=== PATIENT | male | born 1950 | race Caucasian/White ===

== ENCOUNTER 2020-08-05 14:20 | Emergency (ER) | payer MEDICARE, OTHER ==
[~2020-08-05] VITALS: Ht 175.3 cm; Wt 73.6 kg
[2020-08-05] MEDS ORDERED: LACTATED RINGERS 1,000 ML IV ONE ×3 (14:24→20:10)
[2020-08-05] MEDS ORDERED: ZIPRASIDONE 20 MG INJ (GEODON) VIAL IM ONE (14:26)
[2020-08-05] MEDS ORDERED: WATER (STERILE) FOR INJECTION 10 ML ONE (14:27)
[2020-08-05] MEDS ORDERED: ZIPRASIDONE INJECTION 20 MG in WATER (STERILE) FOR INJECTION 1.2 ML IM PRN (14:30)
[2020-08-05] MEDS ORDERED: LORazepam INJ 2 MG/ML (ATIVAN) VIAL ONE (14:36)
[2020-08-05 15:01] LABS: BASOPHILS % (AUTO) 0 % (0-10); EOSINOPHILS # (AUTO) 0.1 10^3/uL (0.0-0.3); EOSINOPHILS % (AUTO) 1 % (0-10); HEMATOCRIT 42 % (40-54); HEMOGLOBIN 13.8 g/dL (13.3-17.7); LYMPHOCYTES # (AUTO) 1.1 10^3/uL (1.0-4.0); LYMPHOCYTES % (AUTO) 12 % (12-44); MEAN CORPUSCULAR HEMOGLOBIN 29 pg (25-34); MEAN CORPUSCULAR HGB CONC 33 g/dL (32-36); MEAN CORPUSCULAR VOLUME 88 fL (80-99); MEAN PLATELET VOLUME 9.3 fL (9.0-12.2); MONOCYTES # (AUTO) 0.5 10^3/uL (0.0-1.0); MONOCYTES % (AUTO) 5 % (0-12); NEUTROPHILS # (AUTO) 7.5 10^3/uL (1.8-7.8); NEUTROPHILS % (AUTO) 81 % (42-75); PLATELET COUNT 173 10^3/uL (130-400); WHITE BLOOD COUNT 9.3 10^3/uL (4.3-11.0)
[2020-08-05 15:02] LABS: BILIRUBIN,URINE NEGATIVE (NEGATIVE); CLARITY,URINE CLEAR; COLOR,URINE YELLOW; GLUCOSE, URINE (UA) NEGATIVE (NEGATIVE); KETONES,URINE NEGATIVE (NEGATIVE); LEUKOCYTE ESTERASE ,URINE NEGATIVE (NEGATIVE); NITRITE,URINE NEGATIVE (NEGATIVE); PROTEIN,URINE NEGATIVE (NEGATIVE)
--- NOTE | 2020-08-05 15:03 | NUR ---
RESTRAINTS CHECKED. PRESSURE POINTS CHECKED AND PT REPOSITIONED.
[2020-08-05 15:11] LABS: BACTERIA,URINE NEGATIVE /HPF; HYALINE CASTS, URINE RARE /LPF; RBC,URINE RARE /HPF; SQUAMOUS EPITHELIAL CELL,UR RARE /HPF
[2020-08-05 15:12] LABS: PROTHROMBIN TIME PATIENT 13.2 SEC (12.2-14.7)
[2020-08-05 15:16] LABS: AMPHETAMINE SCREEN, URINE POSITIVE (NEGATIVE); BARBITURATE SCREEN URINE NEGATIVE (NEGATIVE); BENZODIAZEPINES SCREEN URINE NEGATIVE (NEGATIVE); CANNABINOID SCREEN, URINE NEGATIVE (NEGATIVE); COCAINE SCREEN URINE POSITIVE (NEGATIVE); METHADONE STAT NEGATIVE (NEGATIVE); METHAMPHETAMINE SCREEN URINE S POSITIVE (NEGATIVE); OPIATE SCREEN URINE NEGATIVE (NEGATIVE); OXYCODONE STAT NEGATIVE (NEGATIVE); PROPOXYPHENE STAT NEGATIVE (NEGATIVE); TRICYCLIC ANTIDEPRESSANTS SCRE NEGATIVE (NEGATIVE)
[2020-08-05 15:18] LABS: ALBUMIN 4.3 GM/DL (3.2-4.5); CHLORIDE 104 MMOL/L (98-107); POTASSIUM 4.2 MMOL/L (3.6-5.0); SODIUM 141 MMOL/L (135-145)
--- NOTE | 2020-08-05 15:18 | NUR ---
RESTRAINTS CHECKED. PRESSURE POINTS CHECKED AND NO ABNORMALITIES NOTED.
[2020-08-05 15:20] LABS: CALCIUM 8.9 MG/DL (8.5-10.1)
[2020-08-05 15:21] LABS: GLUCOSE 140 MG/DL (70-105); TOTAL PROTEIN 7.6 GM/DL (6.4-8.2)
[2020-08-05 15:22] LABS: CARBON DIOXIDE 27 MMOL/L (21-32)
[2020-08-05 15:23] LABS: BILIRUBIN,TOTAL 0.6 MG/DL (0.1-1.0)
[2020-08-05 15:24] LABS: ALKALINE PHOSPHATASE 71 U/L (40-136)
[2020-08-05 15:25] LABS: CREATININE SERUM 1.17 MG/DL (0.60-1.30); GFR ESTIMATED > 60
[2020-08-05 15:26] LABS: BUN/CREATININE RATIO 20
[2020-08-05 15:27] LABS: ALANINE AMINOTRANSFERASE 33 U/L (0-55); MAGNESIUM 2.8 MG/DL (1.6-2.4)
[2020-08-05 15:28] LABS: CREATINE KINASE 2870 U/L (30-200)
[2020-08-05 15:30] LABS: ACETAMINOPHEN < 10 UG/ML (10-30)
--- NOTE | 2020-08-05 15:32 | NUR ---
RESTRAINTS CHECKED. PT REPOSITIONED AND PRESSURE POINTS CHECKED. NO ABNORMALITIES NOTED.
--- NOTE | 2020-08-05 15:34 | ED General ---
General Chief Complaint: Altered Mental Status Stated Complaint: AMS Nursing Triage Note: PT TO ROOM 08 VIA EMS WITH C/O AMS. PT WAS INCOHERENT IN SPEECH AND WAS ATTEMPTING TO HIT, KICK, AND BITE STAFF. AN EMPTY BOTTLE OF VIAGRA AND AN EMPTY VILE OF KETAMINE WAS BROUGHT IN WITH THE PT. PER EMS, PT WAS FOUND SCREAMING AND RUNNING DOWN THE HALLS OF A HOTEL WHILE NAKED. MULTIPLE BRUISES AND BITE CHOPRA WERE FOUND ON THE PT. PT WAS BITING HIMSELF DURING THE EVALUATION. Nursing Sepsis Screen: No Definite Risk Source of Information: EMS Exam Limitations: Other (PT APPEARS TO BE UNDER THE INFLUENCE OF SOME SUBSTANCE/S, AND IS NOT ANSWERING QUESTIONS OR FOLLOWING COMMANDS) History of Present Illness Date Seen by Provider: Aug 05, 2020 Time Seen by Provider: 14:20 Initial Comments PT ARRIVES VIA EMS FROM LOC[facility] PT WAS FOUND NAKED AND SCREAMING AND INCOHERENT IN THE HALLS OF THE HOTEL PT WAS FOUND TO HAVE A LARGE AMOUNT OF DRUGS IN THE ROOM, INCLUDING METH, AN EMPTY BOTTLE OF KETAMINE 50 MG/ML -10 ML VIAL. PT NOTED TO HAVE MULTIPLE TRACK CHOPRA ON HIS ARMS ADDITIONALLY, THERE IS AN EMPTY BOTTLE OF VIAGRA #90 FILLED ON 07/06/20 IN ANOTHER PERSON'S NAME. EMS REPORT THAT THE NAME ON THE VIAGRA BOTTLE WAS THE NAME REPORTEDLY OF THE OTHER MALE IN THE ROOM. ADDITIONALLY THERE WERE MULTIPLE DILDO'S IN THE ROOM. PT HAS A [employer] LICENSE. Allergies and Home Medications Allergies Coded Allergies: No Allergy Information Available (Unverified , 08/05/20) Review of Systems Review of Systems Constitutional: other (UNABLE TO OBTAIN) Past Ewfcjht-Xyjarm-Rawfge Hx Patient Social History 2nd Hand Smoke Exposure: No Recent Foreign Travel: No Contact w/Someone Who Travel: No Recent Infectious Disease Expo: No Physical Abuse: No Sexual Abuse: No Mistreated: No Fear: No Family Medical History ALL PMH IS UNKNOWN PT TESTED + FOR PCP, METH/AMPHETAMINES, AND COCAINE ON 08/05/20. ADDITIONALLY, HE HAD AN EMPTY BOTTLE OF KETAMINE WITH HIM WELL Physical Exam Vital Signs Vital Signs - First Documented 08/05/20 14:30 Temp 36.6 Pulse 86 Resp 23 B/P (MAP) 126/83 (97) O2 Delivery Room Air Capillary Refill : Less Than 3 Seconds Height, Weight, BMI Height: '" Weight: lbs. oz. kg; 23.00 BMI Method: General Appearance: Other (PT IS COMPLETELY NAKED, OUT OF CONTROL, THRASHING, SQUEEZING HIS PENIS AND TESTICLES, BITING HIS ARMS, GRITTING HIS TEETH, PUTTING HIS KNEES TO HIS CHEST AND SAYING "FUCK ME" REPEATEDLY. HE IS ALSO HITTING, KICKING, FIGHTING, TRYING TO BITE STAFF. ) HEENT: Other (BRUISING AND SWELLING TO BOTH UPPER LIDS. TEETH INTACT. ) Respiratory: Normal Breath Sounds, No Accessory Muscle Use, No Respiratory Distress Cardiovascular: Regular Rate, Rhythm, No Murmur Gastrointestinal: Soft Genital/Rectal: Other (BRUISING TO SCROTUM--PT WAS SQUEEZING THIS AREA VERY TIGHTLY ON ARRIVA) Back: Other (BRUISES AND ABRASIONS TO BACK) Extremity: Normal Range of Motion, No Pedal Edema, Other (MULTIPLE BRUISES TO ARMS AND LEGS, BITE CHOPRA TO HIS ARMS THAT HAVE DRAWN BLOOD) Neurologic/Psychiatric: Other (PT COMPLETELY INCOHERENT, THRASHING ALL OVER. NOT ANSWERING QUESTIONS OR FOLLOW COMMANDS. ) Skin: Other (BRUISES AND ABRASIONS TO MOST OF BODY, INCLUDING. HIS BACK . ) Progress/Results/Core Measures Suspected Sepsis Recent Fever Within 48 Hours: No Infection Criteria Present: None New/Unexplained Altered Menta: No Sepsis Screen: No Definite Risk SIRS Temperature: Pulse: 86 Respiratory Rate: 23 Laboratory Tests 08/05/20 14:45: White Blood Count 9.3 Blood Pressure 126 /83 Mean: 97 Laboratory Tests 08/05/20 14:45: Creatinine 1.17, INR Comment 1.0, Platelet Count 173, Total Bilirubin 0.6 Results/Orders Lab Results Laboratory Tests Test 08/05/20 14:45 08/05/20 15:19 Range/Units White Blood Count 9.3 4.3-11.0 10^3/uL Red Blood Count 4.72 4.30-5.52 10^6/uL Hemoglobin 13.8 13.3-17.7 g/dL Hematocrit 42 40-54 % Mean Corpuscular Volume 88 80-99 fL Mean Corpuscular Hemoglobin 29 25-34 pg Mean Corpuscular Hemoglobin Concent 33 32-36 g/dL Red Cell Distribution Width 13.6 10.0-14.5 % Platelet Count 173 130-400 10^3/uL Mean Platelet Volume 9.3 9.0-12.2 fL Immature Granulocyte % (Auto) 0 % Neutrophils (%) (Auto) 81 H 42-75 % Lymphocytes (%) (Auto) 12 12-44 % Monocytes (%) (Auto) 5 0-12 % Eosinophils (%) (Auto) 1 0-10 % Basophils (%) (Auto) 0 0-10 % Neutrophils # (Auto) 7.5 1.8-7.8 10^3/uL Lymphocytes # (Auto) 1.1 1.0-4.0 10^3/uL Monocytes # (Auto) 0.5 0.0-1.0 10^3/uL Eosinophils # (Auto) 0.1 0.0-0.3 10^3/uL Basophils # (Auto) 0.0 0.0-0.1 10^3/uL Immature Granulocyte # (Auto) 0.0 0.0-0.1 10^3/uL Prothrombin Time 13.2 12.2-14.7 SEC INR Comment 1.0 0.8-1.4 Activated Partial Thromboplast Time 27 24-35 SEC Urine Color YELLOW Urine Clarity CLEAR Urine pH 6.0 5-9 Urine Specific [place] 1.020 1.016-1.022 Urine Protein NEGATIVE NEGATIVE Urine Glucose (UA) NEGATIVE NEGATIVE Urine Ketones NEGATIVE NEGATIVE Urine Nitrite NEGATIVE NEGATIVE Urine Bilirubin NEGATIVE NEGATIVE Urine Urobilinogen 0.2 < = 1.0 MG/DL Urine Leukocyte Esterase NEGATIVE NEGATIVE Urine RBC (Auto) 2+ H NEGATIVE Urine RBC RARE /HPF Urine WBC NONE /HPF Urine Squamous Epithelial Cells RARE /HPF Urine Crystals NONE /LPF Urine Bacteria NEGATIVE /HPF Urine Casts PRESENT /LPF Urine Hyaline Casts RARE /LPF Urine Mucus SMALL H /LPF Urine Culture Indicated NO Sodium Level 141 135-145 MMOL/L Potassium Level 4.2 3.6-5.0 MMOL/L Chloride Level 104 98-107 MMOL/L Carbon Dioxide Level 27 21-32 MMOL/L Anion Gap 10 5-14 MMOL/L Blood Urea Nitrogen 23 H 7-18 MG/DL Creatinine 1.17 0.60-1.30 MG/DL Estimat Glomerular Filtration Rate > 60 BUN/Creatinine Ratio 20 Glucose Level 140 H 70-105 MG/DL Calcium Level 8.9 8.5-10.1 MG/DL Corrected Calcium 8.7 8.5-10.1 MG/DL Magnesium Level 2.8 H 1.6-2.4 MG/DL Total Bilirubin 0.6 0.1-1.0 MG/DL Aspartate Amino Transf (AST/SGOT) 65 H 5-34 U/L Alanine Aminotransferase (ALT/SGPT) 33 0-55 U/L Alkaline Phosphatase 71 40-136 U/L Total Creatine Kinase 2870 H 30-200 U/L Creatine Kinase MB 55.3 *H <6.6 NG/ML Myoglobin 3045.5 H 10.0-92.0 NG/ML Troponin I 0.038 H <0.028 NG/ML Total Protein 7.6 6.4-8.2 GM/DL Albumin 4.3 3.2-4.5 GM/DL Urine Opiates Screen NEGATIVE NEGATIVE Urine Oxycodone Screen NEGATIVE NEGATIVE Urine Methadone Screen NEGATIVE NEGATIVE Urine Propoxyphene Screen NEGATIVE NEGATIVE Acetaminophen Level < 10 L 10-30 UG/ML Urine Barbiturates Screen NEGATIVE NEGATIVE Ur Tricyclic Antidepressants Screen NEGATIVE NEGATIVE Urine Phencyclidine Screen POSITIVE H NEGATIVE Urine Amphetamines Screen POSITIVE H NEGATIVE Urine Methamphetamines Screen POSITIVE H NEGATIVE Urine Benzodiazepines Screen NEGATIVE NEGATIVE Urine Cocaine Screen POSITIVE H NEGATIVE Urine Cannabinoids Screen NEGATIVE NEGATIVE Serum Alcohol < 10 <10 MG/DL Coronavirus 2019 ([facility]) Negative Negative My Orders Orders - KRIS DE LA ROSA DO Ed Iv/Invasive Line Start (08/05/20 14:24) Ekg Tracing (08/05/20 14:24) Monitor-Rhythm Ecg Trace Only (08/05/20 14:24) Acetaminophen (08/05/20 14:24) Alcohol (08/05/20 14:24) Cbc With Automated Diff (08/05/20 14:24) Comprehensive Metabolic Panel (08/05/20 14:24) Creatine Kinase (08/05/20 14:24) Creatine Kinase Mb (08/05/20 14:24) Drug Screen Stat (Urine) (08/05/20 14:24) Magnesium (08/05/20 14:24) Protime With Inr (08/05/20 14:24) Partial Thromboplastin Time (08/05/20 14:24) Ua Culture If Indicated (08/05/20 14:24) Myoglobin Serum (08/05/20 14:24) Troponin I (08/05/20 14:24) Ed Iv/Invasive Line Start (08/05/20 14:24) Lactated Ringers (Lr 1000 Ml Iv Solution (08/05/20 14:24) Ziprasidone Injection (Geodon Injection) (08/05/20 14:30) Ziprasidone Injection (Geodon Injection) (08/05/20 14:26) Water (Sterile) For Injection (Sterile W (08/05/20 14:27) Lorazepam Injection (Ativan Injection) (08/05/20 14:36) Covid 19 Inhouse Test (08/05/20 15:02) Ct Head/Face/Cervical Wo (08/05/20 15:04) Chest 1 View, Ap/Pa Only (08/05/20 15:04) Restraints: Behavioral Q15MIN (08/05/20 15:25) Medications Given in ED Current Medications Medications Dose Ordered Sig/Debi Route Start Time Stop Time Status Last Admin Dose Admin Lactated Ringer's 1,000 ml @ 0 mls/hr Q0M ONCE IV 08/05/20 14:24 08/05/20 14:28 DC 08/05/20 15:48 999 MLS/HR Lorazepam 2 mg STK-MED ONCE .ROUTE 08/05/20 14:36 08/05/20 14:37 DC 08/05/20 15:17 2 MG Ziprasidone 20 mg/ Sterile Water 1.2 ml @ 0 mls/hr Q4H PRN IM 08/05/20 14:30 08/05/20 14:35 1.2 MLS/HR Vital Signs/I&O 08/05/20 14:30 Temp 36.6 Pulse 86 Resp 23 B/P (MAP) 126/83 (97) O2 Delivery Room Air Capillary Refill : Less Than 3 Seconds Blood Pressure Mean: 97 Progress Note : Progress Note GIVEN GEODON AND ATIVAN, AND PLACED IN 4 POINT LEATHER RESTRAINTS, PT WAS COMPLETELY OUT OF CONTROL, REQUIRING AT LEAST 6 STAFF MEMBERS TO RESTRAIN PT. PT EVENTUALLY CALMED WITH THE ABOVE MEDICATIONS LEATHER RESTRAINTS WERE LATER REPLACED WITH SOFT RESTRAINTS TO AVOID PT PULLING OUT IV OR CATHETER. VITALS STABLE O2 SATS IN UPPER 90'S TO 100% ON ROOM AIR ECG Initial ECG Impression Date: Aug 05, 2020 Initial ECG Impression Time: 14:57 Initial ECG Rate: 85 Initial ECG Rhythm: Normal Sinus Initial ECG Comparisson: No Previous ECG Available Diagnostic Imaging Comments CXR--PER RADIOLOGIST REPORT AT 1542 IMPRESSION: 1. No acute cardiopulmonary process. CT HEAD/MAXILLOFACIALS/CERVICAL SPINE--PER RADIOLOGIST REPORT AT 1606 IMPRESSION: 1. No hemorrhage or focal intra-axial mass. No CT evidence of large acute territorial ischemia. 2. No acute fracture or dislocation in the cervical spine. 3. No acute facial fractures. Reviewed: Reviewed by Me Departure Communication (Admissions) Family Conversation 1609--CALLED MOTHER'S NUMBER, MESSAGE LEFT. LEONOR MORILLO 1619--CALLED MOTHER'S NUMBER, MESSAGE LEFT 1625--MOTHER CALLED, AND I UPDATED HER ON PT'S CONDITION. SHE SUSPECTED DRUGS WERE INVOLVED 1636--PT'S , NISHA, CALLED. I ALSO UPDATED HER ON PT'S CONDITION. SHE HAS SUSPECTED DRUG USE. SHE STATES HIS BEHAVIOR HAS BEEN VERY ERRATIC, HAS BEEN WITH "QUESTIONABLE PEOPLE", BEHAVIOR HAS BEEN ESCALATING SINCE HE RETIRED IN [place] NO ICU BEDS AVAILABLE HERE 1549--CALLED [facility], NO BEDS AVAILABLE 1550--CALLED [facility], NO BEDS AVAILABLE IN [place] OR [place]. 1610--CALLED , THEY WILL DISCUSS WITH HOSPITALIST, AND WILL FAX THEM A FACE SHEET AND THEY WILL CALL BACK. 1721--CALLED [facility]. HAVE BED. WILL HAVE HOSPITALIST CALL ME BACK. Impression Primary Impression: Altered mental status Additional Impressions: ILLICIT DRUG USE Polysubstance abuse ELEVATED CK AND MYOGLOBIN MILDLY ELEVATED TROPONIN Disposition: XFER SHT-TRM HOSP Condition: Stable Transfer Transfer Reason: Diversion Transfer Facility: [facility] Method of Transfer: EMS ([facility]) KRIS DE LA ROSA DO Aug 05, 2020 15:34
--- NOTE | 2020-08-05 15:39 | Diagnostic Imaging Report ---
INDICATION: AMS COMPARISON: None FINDINGS: Single frontal view of the chest demonstrates normal heart size and pulmonary vascularity. The lungs are well aerated and clear. No large pleural effusion or pneumothorax is seen. The visualized osseous structures show no acute abnormalities. IMPRESSION: 1. No acute cardiopulmonary process. Dictated by: Dictated on workstation # [id number]
--- NOTE | 2020-08-05 15:45 | NUR ---
RESTRAINTES CHECKED. PRESSURE POINTS CHECKED AND NO ABNORMALITIES NOTED.
--- NOTE | 2020-08-05 15:56 | NUR ---
RESTRAINTS CHECKED. PRESSURE POINTS CHECK AND MASSAGED. NO ABNORMALITIES NOTED.
[2020-08-05 15:58] LABS: CREATINE KINASE MB 55.3 NG/ML (<6.6)
--- NOTE | 2020-08-05 16:03 | Diagnostic Imaging Report ---
PROCEDURE: CT head, face, and cervical spine without contrast. TECHNIQUE: Multiple contiguous axial images were obtained through the head, neck, and facial bones without the use of intravenous contrast. Sagittal and coronal reformations through the cervical spine and facial bones were also performed. Auto Exposure Controls were utilized during the CT exam to meet ALARA standards for radiation dose reduction. INDICATION: Altered mental status. COMPARISON: None. FINDINGS: CT head: The ventricles and cortical sulci are mildly prominent. There is no midline shift or mass-effect. No acute intracranial hemorrhage is seen. There is no CT evidence of acute territorial ischemia. No focal masses or collections are present. The calvarium is intact. CT face: No acute facial fractures are visualized. The mandible, zygomatic arches, and pterygoid plates are intact. The bilateral TMJ demonstrate normal articulation. No nasal bone fractures. The bony nasal septum is slightly deviated to the right without fracture. The paranasal sinuses and mastoid air cells are well pneumatized. The globes and orbits are symmetric and unremarkable. Mild soft tissue edema is seen overlying the right orbit. No evidence of orbital rim fracture. CT cervical spine: No acute fracture or dislocation is seen in the cervical spine. No focal osseous lesions. Vertebral body heights are well-maintained. The craniocervical junction is well-maintained. Degenerative changes are seen in the cervical spine with disc osteophyte complexes and uncovertebral arthropathy. Soft tissues of the neck are unremarkable. The included lung apices are clear. IMPRESSION: 1. No hemorrhage or focal intra-axial mass. No CT evidence of large acute territorial ischemia. 2. No acute fracture or dislocation in the cervical spine. 3. No acute facial fractures. Dictated by: Dictated on workstation # [id number]
--- NOTE | 2020-08-05 16:11 | NUR ---
RESTRAINTS CHECKED. PRESSURE POINTS CHECKED AND MASSAGED. NO ABNORMALITIES NOTED.
--- NOTE | 2020-08-05 16:25 | NUR ---
RESTRAINTS CHECKED. PRESSURE POINTS CHECKED AND NO AREAS OF CONCERNS ARE NOTED.
--- NOTE | 2020-08-05 18:48 | NUR ---
EMS CONTACTED FOR TRANSPORT TO [place]. EMS STATES IT WILL BE APPROX 1.5 HOURS UNTIL THEY ARRIVE.
--- NOTE | 2020-08-05 19:00 | NUR ---
RESTRAINTS REMOVED. PRESSURE POINTS MASSAGED AND PT REPOSITIONED.
--- NOTE | 2020-08-05 21:04 | NUR ---
PT DEPART WITH [facility]. PT ID AND WATCH GIVEN TO [place] WITH EMS.
[2020-08-05 21:07] VITALS: BP 151/95
== END 2020-08-05 21:06 | disposition short-term general hospital (02) ==
LOC: ER 14:22
DX: R41.82 Altered mental status, unspecified (principal); F19.10 Other psychoactive substance abuse, uncomplicated; R74.8 Abnormal levels of other serum enzymes; R79.89 Other specified abnormal findings of blood chemistry; Z20.828 Contact with and (suspected) exposure to other viral communicable diseases
CPT/HCPCS: 70450; 70486; 71045; 72125; 80053; 80306; 81000; 82550; 82553; 83735; 83874; 84484; 85025; 85610; 85730; 93005; 93041; 99285; G0480 ×2; U0002; 36415; 80320; 80329; 87635